=== PATIENT | male | born 1965 | race African-American/Black ===

== ENCOUNTER 2017-08-05 07:25 | Emergency (ER) | payer OTHER ==
[~2017-08-05] VITALS: Ht 177.8 cm; Wt 222.0 kg
[2017-08-05 08:12] LABS: HEMATOCRIT 37.3 % (38.0-50.0); HEMOGLOBIN 11.8 G/DL (12.5-16.6); MCH 31.1 PG (29.0-34.0); MCHC 31.6 G/DL (30.0-36.0); MCV 98.4 FL (86-99); PLATELET COUNT 170 K/uL (156-360); RBC DIS.WIDTH-CV 13.2 % (11.8-14.6); RBC DIS.WIDTH-SD 47.7 % (39-53); RED BLOOD COUNT 3.79 M/uL (4.00-5.50); WHITE BLOOD COUNT 8.8 K/uL (4.1-10.2)
[2017-08-05 08:19] LABS: INTER. NORMALIZED RATIO 1.1
[2017-08-05 08:22] LABS: CHLORIDE 98 mEq/L (99-109); POTASSIUM 4.4 mEq/L (3.7-5.4); PTT 23.7 SEC (25-37); SODIUM 138 mEq/L (136-147)
[2017-08-05 08:24] LABS: GLUCOSE 114 mg/dL (70-99)
[2017-08-05 08:28] LABS: UREA NITROGEN (BUN) 16 mg/dL (9-23)
[2017-08-05 08:35] LABS: TROP-I INTERPRETATION NEGATIVE; TROPONIN-I 0.02 ng/mL (0.0-0.30)
[2017-08-05 08:37] LABS: GFR ESTIMATE (CALCULATED) > 59 mL/min/ (58.99-99999)
[2017-08-05] MEDS ORDERED: LASIX80 MG PO (10:58)
[2017-08-05] MEDS ORDERED: POTASSIUM CHLOR8 ME3 PO (10:59)
[2017-08-05 12:21] LABS: TROP-I INTERPRETATION NEGATIVE; TROPONIN-I 0.02 ng/mL (0.0-0.30)
[2017-08-05 13:38] VITALS: BP 123/92
== END 2017-08-05 13:39 | disposition home or self-care (01) ==
LOC: EME 07:25
PROVIDERS: Emergency Medicine
DX: R06.00 Dyspnea, unspecified (principal); I48.91 Unspecified atrial fibrillation; I11.0 Hypertensive heart disease with heart failure; I50.9 Heart failure, unspecified; E78.5 Hyperlipidemia, unspecified; E11.9 Type 2 diabetes mellitus without complications
CPT/HCPCS: 71045; 80048; 83880; 84484; 85027; 85610; 85730; 93005; 99281; 99285; J1940

== ENCOUNTER 2017-08-31 01:16 | Inpatient (IN) | payer OTHER ==
[~2017-08-31] VITALS: Ht 177.8 cm; Wt 224.0 kg
[~2017-08-31 01:16] MED LIST: KLOR-CON20 MEQ PO; LASIX80 MG PO
[2017-08-31 01:57] LABS: HEMATOCRIT 37.1 % (38.0-50.0); HEMOGLOBIN 11.9 G/DL (12.5-16.6); MCH 30.9 PG (29.0-34.0); MCHC 32.1 G/DL (30.0-36.0); MCV 96.4 FL (86-99); PLATELET COUNT 223 K/uL (156-360); RBC DIS.WIDTH-CV 13.1 % (11.8-14.6); RBC DIS.WIDTH-SD 46.1 % (39-53); RED BLOOD COUNT 3.85 M/uL (4.00-5.50); WHITE BLOOD COUNT 9.4 K/uL (4.1-10.2)
[2017-08-31 02:04] LABS: ALBUMIN 3.8 g/dL (3.2-4.8); CHLORIDE 104 mEq/L (99-109); POTASSIUM 4.1 mEq/L (3.7-5.4); SODIUM 140 mEq/L (136-147)
[2017-08-31 02:06] LABS: GLUCOSE 106 mg/dL (70-99); TOTAL PROTEIN 7.3 g/dL (6.4-8.3)
[2017-08-31 02:08] LABS: TOTAL BILIRUBIN 0.6 mg/dL (0.0-1.0)
[2017-08-31 02:10] LABS: ALKALINE PHOSPHATASE 106 IU/L (3-129); CREATININE 1.2 mg/dL (0.6-1.3); GFR ESTIMATE (CALCULATED) > 59 mL/min/ (58.99-99999)
[2017-08-31 02:11] LABS: UREA NITROGEN (BUN) 18 mg/dL (9-23)
[2017-08-31 02:12] LABS: AST (GOT) 32 IU/L (2-34)
[2017-08-31 02:13] LABS: ALT (GPT) 46 IU/L (3-49)
[2017-08-31 02:30] LABS: INTER. NORMALIZED RATIO 1.1
[2017-08-31 02:32] LABS: PTT 27.6 SEC (25-37)
[2017-08-31 02:39] LABS: TROP-I INTERPRETATION NEGATIVE; TROPONIN-I 0.02 ng/mL (0.0-0.30)
[2017-08-31 08:39] VITALS: BP 151/103
[2017-08-31] MEDS ORDERED: LISINOPRIL10 MG PO (09:47)
[2017-08-31] MEDS ORDERED: CARVEDILOL3.125 MG PO (09:49)
[2017-08-31 11:47] VITALS: BP 114/79
[2017-08-31 15:19] VITALS: BP 124/73
[2017-08-31 19:22] VITALS: BP 144/65
[2017-09-01 04:00] VITALS: BP 119/72
[2017-09-01 07:27] VITALS: BP 108/73
[2017-09-01 10:39] LABS: CHLORIDE 98 MEQ/L (99-109); CREATININE 1.3 MG/DL (0.6-1.3); GFR ESTIMATE (CALCULATED) > 59 mL/min/ (58.99-99999); POTASSIUM 4.6 MEQ/L (3.7-5.4); SODIUM 141 MEQ/L (136-147); UREA NITROGEN (BUN) 23 mg/dL (9-23)
[2017-09-01 10:40] LABS: GLUCOSE 215 mg/dL (70-99)
[2017-09-01 15:14] VITALS: BP 121/71
[2017-09-01 20:40] VITALS: BP 112/56
[2017-09-02 00:38] VITALS: BP 112/65
[2017-09-02 03:08] VITALS: BP 130/67
[2017-09-02 08:00] VITALS: BP 111/64
[2017-09-02 09:07] LABS: CHLORIDE 99 MEQ/L (99-109); CREATININE 1.3 MG/DL (0.6-1.3); GFR ESTIMATE (CALCULATED) > 59 mL/min/ (58.99-99999); GLUCOSE 173 mg/dL (70-99); POTASSIUM 4.9 MEQ/L (3.7-5.4); SODIUM 137 MEQ/L (136-147); UREA NITROGEN (BUN) 30 mg/dL (9-23)
== END 2017-09-02 10:25 | disposition left against medical advice (07) | DRG 308 ==
LOC: EME 01:16 → EDOF 05:12 → ENRESERV 05:15 → 3EAST 07:25
PROVIDERS: Emergency Medicine; Hospitalist; Internal Medicine Cardiovascular Disease
PROC: 5A09357 Assistance with Respiratory Ventilation, Less than 24 Consecutive Hours, Continuous Positive Airway Pressure (ICD-10-PCS; principal; 2017-09-01)
DX: I48.91 Unspecified atrial fibrillation (principal); I11.0 Hypertensive heart disease with heart failure; I50.23 Acute on chronic systolic (congestive) heart failure; I42.0 Dilated cardiomyopathy; J44.9 Chronic obstructive pulmonary disease, unspecified; E78.5 Hyperlipidemia, unspecified; E11.9 Type 2 diabetes mellitus without complications; E66.2 Morbid (severe) obesity with alveolar hypoventilation; Z79.84 Long term (current) use of oral hypoglycemic drugs; Z87.891 Personal history of nicotine dependence
CPT/HCPCS: 71045; 80048; 80053; 82948; 83880; 84484; 85027; 85610; 85730; 93005; 93306; 94640; 94640 76; 94660; 94799; 99202; 99281; 99285; J1650; J1815; J1940; J2930; J7512

== ENCOUNTER 2017-09-28 17:05 | Inpatient (IN) | payer OTHER ==
[~2017-09-28] VITALS: Ht 177.8 cm; Wt 220.5 kg
[~2017-09-28 17:05] MED LIST changes: +COREG25 M1 PO; +LISINOPRIL10 MG PO
[2017-09-28 17:34] LABS: HEMATOCRIT 35.3 % (38.0-50.0); HEMOGLOBIN 10.9 G/DL (12.5-16.6); MCH 30.2 PG (29.0-34.0); MCHC 30.9 G/DL (30.0-36.0); MCV 97.8 FL (86-99); PLATELET COUNT 216 K/uL (156-360); RBC DIS.WIDTH-CV 13.2 % (11.8-14.6); RBC DIS.WIDTH-SD 47.4 % (39-53); RED BLOOD COUNT 3.61 M/uL (4.00-5.50); WHITE BLOOD COUNT 8.6 K/uL (4.1-10.2)
[2017-09-28 17:40] LABS: VENOUS PCO2 85 mm Hg (41-51)
[2017-09-28 17:44] LABS: CARBON DIOXIDE (BICARBONATE) > 40.0 MEQ/L (20-31)
[2017-09-28 17:46] LABS: CHLORIDE 97 mEq/L (99-109); POTASSIUM 4.3 mEq/L (3.7-5.4); SODIUM 143 mEq/L (136-147)
[2017-09-28 17:48] LABS: GLUCOSE 103 mg/dL (70-99)
[2017-09-28 17:52] LABS: CREATININE 1.2 mg/dL (0.6-1.3); GFR ESTIMATE (CALCULATED) > 59 mL/min/ (58.99-99999)
[2017-09-28 17:53] LABS: UREA NITROGEN (BUN) 16 mg/dL (9-23)
[2017-09-28 17:59] LABS: TROP-I INTERPRETATION NEGATIVE; TROPONIN-I 0.01 ng/mL (0.0-0.30)
[2017-09-28] MEDS ORDERED: ELIQUIS5 MG PO (19:23)
[2017-09-28 21:22] LABS: CHLORIDE 98 mEq/L (99-109); POTASSIUM 4.3 mEq/L (3.7-5.4); SODIUM 143 mEq/L (136-147)
[2017-09-28 21:24] LABS: GLUCOSE 131 mg/dL (70-99)
[2017-09-28 21:28] LABS: CREATININE 1.1 mg/dL (0.6-1.3); GFR ESTIMATE (CALCULATED) > 59 mL/min/ (58.99-99999)
[2017-09-28 21:29] LABS: UREA NITROGEN (BUN) 17 mg/dL (9-23)
[2017-09-28 23:22] VITALS: BP 140/68
[2017-09-29 04:55] VITALS: BP 143/58
[2017-09-29 06:28] LABS: HEMATOCRIT 34.4 % (38.0-50.0); HEMOGLOBIN 10.6 G/DL (12.5-16.6); MCH 30.7 PG (29.0-34.0); MCHC 30.8 G/DL (30.0-36.0); MCV 99.7 FL (86-99); PLATELET COUNT 228 K/uL (156-360); RBC DIS.WIDTH-CV 13.4 % (11.8-14.6); RBC DIS.WIDTH-SD 49.3 % (39-53); RED BLOOD COUNT 3.45 M/uL (4.00-5.50); WHITE BLOOD COUNT 10.8 K/uL (4.1-10.2)
[2017-09-29 06:31] LABS: CHLORIDE 95 MEQ/L (99-109); CREATININE 1.2 MG/DL (0.6-1.3); GFR ESTIMATE (CALCULATED) > 59 mL/min/ (58.99-99999); GLUCOSE 155 mg/dL (70-99); HDL CHOLESTEROL 36 MG/DL (Desirable>=40); LDL CHOLESTEROL 78 mg/dL (Desirable<100); NON-HDL CHOLESTEROL 89 mg/dL (Desirable<160); POTASSIUM 5.1 MEQ/L (3.7-5.4); SODIUM 138 MEQ/L (136-147); TOTAL CHOLESTEROL 125 mg/dL (Desirable<200); TRIGLYCERIDES 53 MG/DL (Normal: <150); UREA NITROGEN (BUN) 18 mg/dL (9-23)
[2017-09-29 07:11] VITALS: BP 108/56
[2017-09-29 11:50] VITALS: BP 111/53
[2017-09-29 14:45] LABS: HEMOGLOBIN A1c (GLYCOHEMOGLOB) 6.8 % (Below 5.7)
[2017-09-29 15:03] VITALS: BP 119/65
[2017-09-29 19:32] VITALS: BP 09/62; BP 109/62
[2017-09-30 00:03] VITALS: BP 120/54
[2017-09-30 04:45] VITALS: BP 110/60
[2017-09-30 05:28] LABS: BASOPHIL (%) 0.1 % (0-1); EOSINOPHIL (%) 0 % (0-5); HEMOGLOBIN 10.2 G/DL (12.5-16.6); IMMATURE GRANULOCYTE (%) 0.5 % (0.0-0.7); LYMPHOCYTE (%) 5.8 % (15-42); LYMPHOCYTE COUNT 0.9 K/uL (1.0-2.8); MCH 29.7 PG (29.0-34.0); MCV 98.8 FL (86-99); MONOCYTE (%) 4.1 % (3-12); MONOCYTE COUNT 0.6 K/uL (0-0.8); NEUTROPHIL (%) 89.5 % (45-76); NEUTROPHIL COUNT 13.4 K/uL (1.8-6.4); PLATELET COUNT 251 K/uL (156-360); RBC DIS.WIDTH-CV 13.1 % (11.8-14.6); RBC DIS.WIDTH-SD 47.6 % (39-53); RED BLOOD COUNT 3.44 M/uL (4.00-5.50); WHITE BLOOD COUNT 14.9 K/uL (4.1-10.2)
[2017-09-30 06:03] LABS: CHLORIDE 94 MEQ/L (99-109); CREATININE 1.4 MG/DL (0.6-1.3); GFR ESTIMATE (CALCULATED) > 59 mL/min/ (58.99-99999); GLUCOSE 217 mg/dL (70-99); POTASSIUM 5.3 MEQ/L (3.7-5.4); SODIUM 137 MEQ/L (136-147)
[2017-09-30 06:04] LABS: UREA NITROGEN (BUN) 30 mg/dL (9-23)
[2017-09-30 07:02] VITALS: BP 142/75
[2017-09-30 11:42] VITALS: BP 116/44
[2017-09-30 15:42] VITALS: BP 130/96
[2017-09-30 19:52] VITALS: BP 115/57
[2017-10-01 00:05] VITALS: BP 111/66
[2017-10-01 04:36] VITALS: BP 117/65
[2017-10-01 07:04] VITALS: BP 131/71
[2017-10-01 07:53] LABS: BASOPHIL (%) 0.1 % (0-1); EOSINOPHIL (%) 0.4 % (0-5); EOSINOPHIL COUNT 0.1 K/uL (0-0.3); HEMATOCRIT 33.5 % (38.0-50.0); IMMATURE GRANULOCYTE (%) 0.5 % (0.0-0.7); LYMPHOCYTE (%) 10.7 % (15-42); LYMPHOCYTE COUNT 1.5 K/uL (1.0-2.8); MCH 29.6 PG (29.0-34.0); MCHC 29.9 G/DL (30.0-36.0); MCV 99.1 FL (86-99); MONOCYTE (%) 10.7 % (3-12); MONOCYTE COUNT 1.5 K/uL (0-0.8); NEUTROPHIL (%) 77.6 % (45-76); NEUTROPHIL COUNT 10.9 K/uL (1.8-6.4); PLATELET COUNT 255 K/uL (156-360); RBC DIS.WIDTH-CV 13.2 % (11.8-14.6); RBC DIS.WIDTH-SD 47.6 % (39-53); RED BLOOD COUNT 3.38 M/uL (4.00-5.50); WHITE BLOOD COUNT 14.1 K/uL (4.1-10.2)
[2017-10-01 08:18] LABS: ALBUMIN 3.5 G/DL (3.2-4.8); ALKALINE PHOSPHATASE 98 IU/L (3-129); ALT (GPT) 25 IU/L (3-49); AST (GOT) 13 IU/L (2-34); CHLORIDE 91 MEQ/L (99-109); CREATININE 1.3 MG/DL (0.6-1.3); GFR ESTIMATE (CALCULATED) > 59 mL/min/ (58.99-99999); GLUCOSE 154 mg/dL (70-99); POTASSIUM 4.6 MEQ/L (3.7-5.4); SODIUM 137 MEQ/L (136-147); TOTAL BILIRUBIN 0.3 MG/DL (0.0-1.0); TOTAL PROTEIN 6.7 G/DL (6.4-8.3); UREA NITROGEN (BUN) 38 mg/dL (9-23)
[2017-10-01 08:19] LABS: CARBON DIOXIDE (BICARBONATE) > 40.0 MEQ/L (20-31)
[2017-10-01 12:38] VITALS: BP 114/69
[2017-10-01 19:22] VITALS: BP 108/59
[2017-10-02 00:05] VITALS: BP 129/66
[2017-10-02 08:14] VITALS: BP 130/68
[2017-10-02 08:49] LABS: BASOPHIL (%) 0.1 % (0-1); EOSINOPHIL (%) 0.2 % (0-5); HEMATOCRIT 34.5 % (38.0-50.0); HEMOGLOBIN 10.5 G/DL (12.5-16.6); IMMATURE GRANULOCYTE (%) 0.6 % (0.0-0.7); LYMPHOCYTE COUNT 1.6 K/uL (1.0-2.8); MCH 29.7 PG (29.0-34.0); MCHC 30.4 G/DL (30.0-36.0); MCV 97.7 FL (86-99); MONOCYTE (%) 11.2 % (3-12); MONOCYTE COUNT 1.4 K/uL (0-0.8); NEUTROPHIL (%) 74.9 % (45-76); NEUTROPHIL COUNT 9.2 K/uL (1.8-6.4); PLATELET COUNT 268 K/uL (156-360); RBC DIS.WIDTH-CV 13.2 % (11.8-14.6); RBC DIS.WIDTH-SD 47.1 % (39-53); RED BLOOD COUNT 3.53 M/uL (4.00-5.50); WHITE BLOOD COUNT 12.3 K/uL (4.1-10.2)
[2017-10-02 09:24] LABS: CHLORIDE 90 MEQ/L (99-109); CREATININE 1.3 MG/DL (0.6-1.3); GFR ESTIMATE (CALCULATED) > 59 mL/min/ (58.99-99999); GLUCOSE 150 mg/dL (70-99); POTASSIUM 4.3 MEQ/L (3.7-5.4); SODIUM 139 MEQ/L (136-147); UREA NITROGEN (BUN) 37 mg/dL (9-23)
[2017-10-02 09:31] LABS: CARBON DIOXIDE (BICARBONATE) > 40.0 MEQ/L (20-31)
[2017-10-02 11:55] VITALS: BP 136/74
[2017-10-02 16:10] VITALS: BP 108/51
[2017-10-02 19:24] VITALS: BP 90/55
[2017-10-02 23:38] VITALS: BP 102/73
[2017-10-03 06:40] LABS: BASOPHIL (%) 0.6 % (0-1); BASOPHIL COUNT 0.1 K/uL (0-0.1); EOSINOPHIL (%) 1.6 % (0-5); EOSINOPHIL COUNT 0.2 K/uL (0-0.3); HEMATOCRIT 37.4 % (38.0-50.0); HEMOGLOBIN 11.6 G/DL (12.5-16.6); IMMATURE GRANULOCYTE (%) 0.4 % (0.0-0.7); LYMPHOCYTE (%) 18.5 % (15-42); MCH 29.7 PG (29.0-34.0); MCV 95.9 FL (86-99); MONOCYTE (%) 12.6 % (3-12); MONOCYTE COUNT 1.3 K/uL (0-0.8); NEUTROPHIL (%) 66.3 % (45-76); PLATELET COUNT 283 K/uL (156-360); RBC DIS.WIDTH-CV 13.2 % (11.8-14.6); RBC DIS.WIDTH-SD 46.8 % (39-53); WHITE BLOOD COUNT 10.6 K/uL (4.1-10.2)
[2017-10-03 07:07] LABS: CHLORIDE 88 MEQ/L (99-109); CREATININE 1.3 MG/DL (0.6-1.3); GFR ESTIMATE (CALCULATED) > 59 mL/min/ (58.99-99999); GLUCOSE 138 mg/dL (70-99); POTASSIUM 3.9 MEQ/L (3.7-5.4); SODIUM 138 MEQ/L (136-147); UREA NITROGEN (BUN) 42 mg/dL (9-23)
[2017-10-03 07:10] LABS: CARBON DIOXIDE (BICARBONATE) > 40.0 MEQ/L (20-31)
[2017-10-03 07:35] VITALS: BP 144/84
[2017-10-03 16:14] VITALS: BP 145/83
[2017-10-03 19:28] VITALS: BP 115/60
[2017-10-03 23:33] VITALS: BP 110/61
[2017-10-04 08:09] VITALS: BP 132/78
[2017-10-04 09:56] LABS: CARBON DIOXIDE (BICARBONATE) > 40.0 MEQ/L (20-31); CHLORIDE 85 MEQ/L (99-109); CREATININE 1.2 MG/DL (0.6-1.3); GFR ESTIMATE (CALCULATED) > 59 mL/min/ (58.99-99999); GLUCOSE 190 mg/dL (70-99); POTASSIUM 3.7 MEQ/L (3.7-5.4); SODIUM 136 MEQ/L (136-147); UREA NITROGEN (BUN) 41 mg/dL (9-23)
[2017-10-04 19:20] VITALS: BP 118/80
[2017-10-04 23:24] VITALS: BP 105/55
[2017-10-05 09:34] LABS: HEMATOCRIT 38.6 % (38.0-50.0); HEMOGLOBIN 12.3 G/DL (12.5-16.6); MCH 30.2 PG (29.0-34.0); MCHC 31.9 G/DL (30.0-36.0); MCV 94.8 FL (86-99); PLATELET COUNT 284 K/uL (156-360); RBC DIS.WIDTH-CV 13.3 % (11.8-14.6); RBC DIS.WIDTH-SD 46.1 % (39-53); RED BLOOD COUNT 4.07 M/uL (4.00-5.50); WHITE BLOOD COUNT 10.3 K/uL (4.1-10.2)
[2017-10-05 10:06] LABS: CHLORIDE 84 MEQ/L (99-109); CREATININE 1.5 MG/DL (0.6-1.3); GFR ESTIMATE (CALCULATED) > 59 mL/min/ (58.99-99999); GLUCOSE 213 mg/dL (70-99); POTASSIUM 3.7 MEQ/L (3.7-5.4); SODIUM 136 MEQ/L (136-147); UREA NITROGEN (BUN) 45 mg/dL (9-23)
[2017-10-05 10:18] LABS: CARBON DIOXIDE (BICARBONATE) > 40.0 MEQ/L (20-31)
[2017-10-05 15:51] VITALS: BP 105/64
[2017-10-05 19:30] VITALS: BP 118/72
[2017-10-05 23:44] VITALS: BP 107/55
[2017-10-06 08:05] VITALS: BP 111/59
[2017-10-06 09:16] LABS: CHLORIDE 86 MEQ/L (99-109); CREATININE 1.5 MG/DL (0.6-1.3); GFR ESTIMATE (CALCULATED) > 59 mL/min/ (58.99-99999); GLUCOSE 213 mg/dL (70-99); POTASSIUM 3.4 MEQ/L (3.7-5.4); SODIUM 138 MEQ/L (136-147); UREA NITROGEN (BUN) 47 mg/dL (9-23)
[2017-10-06 09:18] LABS: CARBON DIOXIDE (BICARBONATE) > 40.0 MEQ/L (20-31)
[2017-10-06 10:07] LABS: MAGNESIUM 2.1 mg/dl (1.3-2.7)
[2017-10-06] MEDS ORDERED: GLIPIZIDE5 MG PO (12:56)
[2017-10-06] MEDS ORDERED: K-DUR20 MEQ PO (12:56)
[2017-10-06] MEDS ORDERED: ENTRESTO 24 MG1 EACH PO (12:56)
[2017-10-06] MEDS ORDERED: METOLAZONE2.5 MG PO (12:56)
[2017-10-06] MEDS ORDERED: CARVEDILOL25 MG PO (12:56)
[2017-10-06] MEDS ORDERED: FUROSEMIDE80 MG PO (12:56)
== END 2017-10-06 16:33 | disposition home health service (06) | DRG 189 ==
LOC: EME 17:05 → EDOF 20:19 → 4EAST 20:19 → 5SOUTH 20:19 → ENRESERV 20:20 → 4EAST 22:54 → ENRESERV 10-01 16:42 → 5SOUTH 10-01 18:43 → ENPENDDIS 10-06 13:13 → 5SOUTH 10-06 16:33
PROVIDERS: Emergency Medicine; Hospitalist; Internal Medicine
PROC: 5A09357 Assistance with Respiratory Ventilation, Less than 24 Consecutive Hours, Continuous Positive Airway Pressure (ICD-10-PCS; principal; 2017-09-29)
DX: J96.21 Acute and chronic respiratory failure with hypoxia (principal); I11.0 Hypertensive heart disease with heart failure; I50.23 Acute on chronic systolic (congestive) heart failure; J44.1 Chronic obstructive pulmonary disease with (acute) exacerbation; J45.901 Unspecified asthma with (acute) exacerbation; E87.4 Mixed disorder of acid-base balance; T50.1X5A Adverse effect of loop [high-ceiling] diuretics, initial encounter; I48.2 Chronic atrial fibrillation; E78.5 Hyperlipidemia, unspecified; E11.9 Type 2 diabetes mellitus without complications; D72.829 Elevated white blood cell count, unspecified; E66.2 Morbid (severe) obesity with alveolar hypoventilation; Z68.44 Body mass index [BMI] 60.0-69.9, adult; Z79.01 Long term (current) use of anticoagulants; Z91.14 Patient's other noncompliance with medication regimen; Z91.19 Patient's noncompliance with other medical treatment and regimen; Z87.891 Personal history of nicotine dependence
CPT/HCPCS: 36600; 71045; 80048; 80048 91; 80053; 80061; 82803; 82948; 83036; 83605; 83735; 83880; 84484; 85025; 85027; 87040; 93005; 94640; 94640 76; 94660; 94760; 94799; 97530 GO; 99281; 99285; J1815; J1940; J2920; J7644

== ENCOUNTER 2018-01-01 17:33 | Inpatient (IN) | payer OTHER ==
[~2018-01-01] VITALS: Ht 177.8 cm; Wt 190.0 kg
[~2018-01-01 17:33] MED LIST changes: +CARVEDILOL25 MG PO; +ELIQUIS5 MG PO; +ENTRESTO 24 MG1 EACH PO; +FUROSEMIDE80 MG PO; +GLIPIZIDE5 MG PO; +K-DUR20 MEQ PO; +METOLAZONE2.5 MG PO
[2018-01-01 18:42] LABS: HEMATOCRIT 45.3 % (38.0-50.0); HEMOGLOBIN 15.6 G/DL (12.5-16.6); MCH 30.8 PG (29.0-34.0); MCHC 34.4 G/DL (30.0-36.0); MCV 89.5 FL (86-99); PLATELET COUNT 192 K/uL (156-360); RBC DIS.WIDTH-CV 12.8 % (11.8-14.6); RBC DIS.WIDTH-SD 41.7 % (39-53); RED BLOOD COUNT 5.06 M/uL (4.00-5.50); WHITE BLOOD COUNT 10.7 K/uL (4.1-10.2)
[2018-01-01 18:44] LABS: APPEARANCE CLEAR ((CLEAR)); BILIRUBIN NEGATIVE; BLOOD NEGATIVE; COLOR COLORLESS ((YELLOW)); GLUCOSE (STRIP) >=500; KETONES 5; LEUKOCYTES NEGATIVE; NITRITE NEGATIVE; PROTEIN (STRIP) NEGATIVE; SPECIFIC GRAVITY 1.026 (1.000-1.030); UCUL ADDED? NO; UROBILINOGEN 0.2 MG/DL (0.2-1.0)
[2018-01-01 18:47] LABS: CARBON DIOXIDE (BICARBONATE) 33.5 MEQ/L (20-31)
[2018-01-01 18:55] LABS: ALBUMIN 4.2 g/dL (3.2-4.8)
[2018-01-01 18:56] LABS: CHLORIDE 74 mEq/L (99-109); POTASSIUM 5.3 mEq/L (3.7-5.4)
[2018-01-01 18:58] LABS: TOTAL PROTEIN 8.4 g/dL (6.4-8.3)
[2018-01-01 19:02] LABS: ALKALINE PHOSPHATASE 155 IU/L (3-129)
[2018-01-01 19:03] LABS: CREATININE 2.4 mg/dL (0.6-1.3); GFR ESTIMATE (CALCULATED) 37 mL/min/ (58.99-99999); UREA NITROGEN (BUN) 19 mg/dL (9-23)
[2018-01-01 19:05] LABS: ALT (GPT) 25 IU/L (3-49); AST (GOT) 20 IU/L (2-34); LIPASE 66 U/L (1.0-51.0)
[2018-01-01 19:08] LABS: GLUCOSE 983 mg/dL (70-99); SODIUM 118 mEq/L (136-147)
[2018-01-01 19:47] LABS: TROP-I INTERPRETATION NEGATIVE; TROPONIN-I 0.02 ng/mL (0.0-0.30)
[2018-01-01 21:31] LABS: CREATININE 2.1 mg/dL (0.6-1.3); GFR ESTIMATE (CALCULATED) 43 mL/min/ (58.99-99999)
[2018-01-01 21:32] LABS: UREA NITROGEN (BUN) 19 mg/dL (9-23)
[2018-01-01 21:39] LABS: CHLORIDE 83 mEq/L (99-109); GLUCOSE 788 mg/dL (70-99); POTASSIUM 3.9 mEq/L (3.7-5.4); SODIUM 125 mEq/L (136-147)
[2018-01-02] VITALS (18 sets, daily range): BP systolic 86–134; BP diastolic 56–90
[2018-01-02] MEDS ORDERED: K-DUR20 MEQ PO (00:05)
[2018-01-02] MEDS ORDERED: LASIX80 MG PO (00:06)
[2018-01-02 03:15] LABS: HEMATOCRIT 41.3 % (38.0-50.0); HEMOGLOBIN 14.5 G/DL (12.5-16.6); MCH 30.9 PG (29.0-34.0); MCHC 35.1 G/DL (30.0-36.0); MCV 87.9 FL (86-99); RBC DIS.WIDTH-CV 12.6 % (11.8-14.6); RBC DIS.WIDTH-SD 41.1 % (39-53); WHITE BLOOD COUNT 11.1 K/uL (4.1-10.2)
[2018-01-02 03:25] LABS: ALBUMIN 3.7 g/dL (3.2-4.8); CHLORIDE 85 mEq/L (99-109); POTASSIUM 4.4 mEq/L (3.7-5.4); SODIUM 126 mEq/L (136-147)
[2018-01-02 03:28] LABS: TOTAL PROTEIN 7.4 g/dL (6.4-8.3)
[2018-01-02 03:30] LABS: TOTAL BILIRUBIN 0.8 mg/dL (0.0-1.0)
[2018-01-02 03:31] LABS: ALKALINE PHOSPHATASE 128 IU/L (3-129); CREATININE 2.1 mg/dL (0.6-1.3); GFR ESTIMATE (CALCULATED) 43 mL/min/ (58.99-99999)
[2018-01-02 03:33] LABS: AST (GOT) 16 IU/L (2-34); PHOSPHORUS 3.8 mg/dL (2.5-4.9); UREA NITROGEN (BUN) 19 mg/dL (9-23)
[2018-01-02 03:34] LABS: ALT (GPT) 22 IU/L (3-49)
[2018-01-02 03:36] LABS: GLUCOSE 707 mg/dL (70-99)
[2018-01-02 03:41] LABS: TROP-I INTERPRETATION NEGATIVE; TROPONIN-I 0.02 ng/mL (0.0-0.30)
[2018-01-02 04:16] LABS: PLAT.SUFFICIENCY ADEQUATE; PLATELET COUNT 190 K/uL (156-360)
[2018-01-02 08:17] LABS: CHLORIDE 88 MEQ/L (99-109); GFR ESTIMATE (CALCULATED) > 59 mL/min/ (58.99-99999); POTASSIUM 3.8 MEQ/L (3.7-5.4); SODIUM 128 MEQ/L (136-147); UREA NITROGEN (BUN) 16 mg/dL (9-23)
[2018-01-02 08:19] LABS: CREATININE 1.5 MG/DL (0.6-1.3); GLUCOSE 336 mg/dL (70-99)
[2018-01-02 13:50] LABS: CHLORIDE 91 MEQ/L (99-109); CREATININE 1.3 MG/DL (0.6-1.3); GFR ESTIMATE (CALCULATED) > 59 mL/min/ (58.99-99999); GLUCOSE 243 mg/dL (70-99); PHOSPHORUS 2.7 mg/dL (2.5-4.9); POTASSIUM 3.6 MEQ/L (3.7-5.4); UREA NITROGEN (BUN) 17 mg/dL (9-23)
[2018-01-02 13:53] LABS: SODIUM 135 MEQ/L (136-147)
[2018-01-02 16:20] LABS: CHLORIDE 92 MEQ/L (99-109); CREATININE 1.3 MG/DL (0.6-1.3); GFR ESTIMATE (CALCULATED) > 59 mL/min/ (58.99-99999); GLUCOSE 178 mg/dL (70-99); PHOSPHORUS 2.7 mg/dL (2.5-4.9); POTASSIUM 3.2 MEQ/L (3.7-5.4); SODIUM 135 MEQ/L (136-147); UREA NITROGEN (BUN) 16 mg/dL (9-23)
[2018-01-02 20:10] LABS: CHLORIDE 91 mEq/L (99-109); POTASSIUM 3.5 mEq/L (3.7-5.4); SODIUM 136 mEq/L (136-147)
[2018-01-02 20:11] LABS: GLUCOSE 168 mg/dL (70-99)
[2018-01-02 20:15] LABS: CREATININE 1.5 mg/dL (0.6-1.3); GFR ESTIMATE (CALCULATED) > 59 mL/min/ (58.99-99999); PHOSPHORUS 3.4 mg/dL (2.5-4.9)
[2018-01-02 20:16] LABS: UREA NITROGEN (BUN) 17 mg/dL (9-23)
[2018-01-03] VITALS (7 sets, daily range): BP systolic 68–143; BP diastolic 41–71
[2018-01-03 08:30] LABS: PHOSPHORUS 3.1 mg/dL (2.5-4.9)
[2018-01-03 11:36] LABS: BASOPHIL (%) 0.5 % (0-1); BASOPHIL COUNT 0.1 K/uL (0-0.1); EOSINOPHIL (%) 1.4 % (0-5); EOSINOPHIL COUNT 0.2 K/uL (0-0.3); HEMATOCRIT 42.6 % (38.0-50.0); HEMOGLOBIN 14.2 G/DL (12.5-16.6); IMMATURE GRANULOCYTE (%) 0.4 % (0.0-0.7); LYMPHOCYTE (%) 21.7 % (15-42); LYMPHOCYTE COUNT 2.3 K/uL (1.0-2.8); MCHC 33.3 G/DL (30.0-36.0); MCV 90.1 FL (86-99); MONOCYTE (%) 8.6 % (3-12); MONOCYTE COUNT 0.9 K/uL (0-0.8); NEUTROPHIL (%) 67.4 % (45-76); NEUTROPHIL COUNT 7.3 K/uL (1.8-6.4); PLATELET COUNT 177 K/uL (156-360); RBC DIS.WIDTH-CV 13.2 % (11.8-14.6); RBC DIS.WIDTH-SD 43.8 % (39-53); RED BLOOD COUNT 4.73 M/uL (4.00-5.50); WHITE BLOOD COUNT 10.8 K/uL (4.1-10.2)
[2018-01-03 11:57] LABS: CHLORIDE 93 MEQ/L (99-109); CREATININE 1.3 MG/DL (0.6-1.3); GFR ESTIMATE (CALCULATED) > 59 mL/min/ (58.99-99999); GLUCOSE 334 mg/dL (70-99); MAGNESIUM 1.9 mg/dl (1.3-2.7); POTASSIUM 3.6 MEQ/L (3.7-5.4); SODIUM 133 MEQ/L (136-147); UREA NITROGEN (BUN) 18 mg/dL (9-23)
[2018-01-03] MEDS ORDERED: BASAGLAR K100 UNIT/1 SC ×2 (14:50→14:51)
[2018-01-03] MEDS ORDERED: LISINOPRIL10 MG PO (15:25)
== END 2018-01-03 16:50 | disposition home or self-care (01) | DRG 638 ==
LOC: EME 17:33 → 5SOUTH 01-02 01:03 → EDOF 01-02 01:03 → ENRESERV 01-02 01:06 → 4WEST 01-02 02:22 → ENRESERV 01-03 00:18 → 5SOUTH 01-03 01:19
PROVIDERS: Hospitalist; Obstetrics & Gynecology; Physician Assistant
DX: E11.10 Type 2 diabetes mellitus with ketoacidosis without coma (principal); E11.65 Type 2 diabetes mellitus with hyperglycemia; N17.9 Acute kidney failure, unspecified; E87.1 Hypo-osmolality and hyponatremia; E86.0 Dehydration; I42.0 Dilated cardiomyopathy; I11.0 Hypertensive heart disease with heart failure; I50.9 Heart failure, unspecified; I48.2 Chronic atrial fibrillation; J44.9 Chronic obstructive pulmonary disease, unspecified; E66.2 Morbid (severe) obesity with alveolar hypoventilation; Z68.44 Body mass index [BMI] 60.0-69.9, adult; E78.5 Hyperlipidemia, unspecified; Z79.01 Long term (current) use of anticoagulants; Z91.19 Patient's noncompliance with other medical treatment and regimen; Z87.891 Personal history of nicotine dependence
CPT/HCPCS: 71046; 80048; 80048 91; 80053; 81003; 82010; 82803; 82948; 83036; 83690; 83735; 84100; 84484; 85025; 85027; 87641; 93005; 93306; 99281; 99285; J1815; J2765; J3480; J7030; J7050

== ENCOUNTER 2018-01-08 12:43 | Inpatient (IN) | payer OTHER ==
[~2018-01-08] VITALS: Ht 175.3 cm; Wt 120.9 kg
[~2018-01-08 12:43] MED LIST changes: +BASAGLAR K100 UNIT/1 SC
[2018-01-08 13:42] LABS: BASOPHIL (%) 0.4 % (0-1); EOSINOPHIL (%) 0.9 % (0-5); EOSINOPHIL COUNT 0.1 K/uL (0-0.3); HEMATOCRIT 41.2 % (38.0-50.0); IMMATURE GRANULOCYTE (%) 0.4 % (0.0-0.7); LYMPHOCYTE (%) 20.4 % (15-42); LYMPHOCYTE COUNT 1.6 K/uL (1.0-2.8); MCH 30.8 PG (29.0-34.0); MCV 90.5 FL (86-99); MONOCYTE (%) 9.1 % (3-12); MONOCYTE COUNT 0.7 K/uL (0-0.8); NEUTROPHIL (%) 68.8 % (45-76); NEUTROPHIL COUNT 5.4 K/uL (1.8-6.4); PLATELET COUNT 167 K/uL (156-360); RBC DIS.WIDTH-CV 13.4 % (11.8-14.6); RBC DIS.WIDTH-SD 44.4 % (39-53); RED BLOOD COUNT 4.55 M/uL (4.00-5.50); WHITE BLOOD COUNT 7.8 K/uL (4.1-10.2)
[2018-01-08 13:57] LABS: CHLORIDE 81 mEq/L (99-109); CREATININE 3.3 mg/dL (0.6-1.3); GFR ESTIMATE (CALCULATED) 26 mL/min/ (58.99-99999); POTASSIUM 4.8 mEq/L (3.7-5.4); SODIUM 122 mEq/L (136-147)
[2018-01-08 14:01] LABS: UREA NITROGEN (BUN) 49 mg/dL (9-23)
[2018-01-08 14:02] LABS: TROP-I INTERPRETATION NEGATIVE; TROPONIN-I 0.02 ng/mL (0.0-0.30)
[2018-01-08 14:34] LABS: GLUCOSE 838 mg/dL (70-99)
[2018-01-08 14:53] LABS: CARBON DIOXIDE (BICARBONATE) 31.2 MEQ/L (20-31)
[2018-01-08 15:01] LABS: ALBUMIN 3.6 G/DL (3.2-4.8); DIRECT BILIRUBIN 0.2 mg/dL (0.0-0.3); TOTAL BILIRUBIN 0.7 MG/DL (0.0-1.0)
[2018-01-08 15:07] LABS: ALKALINE PHOSPHATASE 95 IU/L (3-129); ALT (GPT) 20 IU/L (3-49); AST (GOT) 19 IU/L (2-34)
[2018-01-08 17:57] LABS: APPEARANCE CLEAR ((CLEAR)); BILIRUBIN NEGATIVE; BLOOD NEGATIVE; COLOR YELLOW ((YELLOW)); GLUCOSE (STRIP) >=500; KETONES NEGATIVE; LEUKOCYTES NEGATIVE; NITRITE NEGATIVE; PROTEIN (STRIP) NEGATIVE; SPECIFIC GRAVITY 1.017 (1.000-1.030); UCUL ADDED? NO; UROBILINOGEN 0.2 MG/DL (0.2-1.0)
[2018-01-08] MEDS ORDERED: LISINOPRIL10 MG PO (17:59)
[2018-01-08] MEDS ORDERED: CARVEDILOL25 MG PO (17:59)
[2018-01-08] MEDS ORDERED: BASAGLAR K100 UNIT/1 SC ×2 (18:00→18:01)
[2018-01-09] VITALS (8 sets, daily range): BP systolic 78–129; BP diastolic 0–73
[2018-01-09 01:11] LABS: TROP-I INTERPRETATION NEGATIVE; TROPONIN-I 0.02 ng/mL (0.0-0.30)
[2018-01-09 06:21] LABS: CHLORIDE 90 MEQ/L (99-109); CREATININE 3.8 MG/DL (0.6-1.3); GFR ESTIMATE (CALCULATED) 22 mL/min/ (58.99-99999); UREA NITROGEN (BUN) 51 mg/dL (9-23)
[2018-01-09 06:26] LABS: GLUCOSE 218 mg/dL (70-99); POTASSIUM 3.3 MEQ/L (3.7-5.4); SODIUM 132 MEQ/L (136-147)
[2018-01-10 00:01] VITALS: BP 168/97
[2018-01-10 03:30] VITALS: BP 150/51
[2018-01-10 05:22] LABS: BASOPHIL (%) 0.7 % (0-1); BASOPHIL COUNT 0.1 K/uL (0-0.1); EOSINOPHIL (%) 1.4 % (0-5); EOSINOPHIL COUNT 0.1 K/uL (0-0.3); HEMATOCRIT 39.8 % (38.0-50.0); HEMOGLOBIN 13.5 G/DL (12.5-16.6); IMMATURE GRANULOCYTE (%) 0.2 % (0.0-0.7); LYMPHOCYTE (%) 28.6 % (15-42); LYMPHOCYTE COUNT 2.6 K/uL (1.0-2.8); MCH 30.8 PG (29.0-34.0); MCHC 33.9 G/DL (30.0-36.0); MCV 90.7 FL (86-99); MONOCYTE (%) 12.3 % (3-12); MONOCYTE COUNT 1.1 K/uL (0-0.8); NEUTROPHIL (%) 56.8 % (45-76); NEUTROPHIL COUNT 5.1 K/uL (1.8-6.4); PLATELET COUNT 165 K/uL (156-360); RBC DIS.WIDTH-CV 13.2 % (11.8-14.6); RED BLOOD COUNT 4.39 M/uL (4.00-5.50)
[2018-01-10 06:11] LABS: CHLORIDE 96 MEQ/L (99-109); GLUCOSE 246 mg/dL (70-99); POTASSIUM 3.4 MEQ/L (3.7-5.4); SODIUM 133 MEQ/L (136-147); UREA NITROGEN (BUN) 45 mg/dL (9-23)
[2018-01-10 06:20] LABS: CREATININE 1.8 MG/DL (0.6-1.3); GFR ESTIMATE (CALCULATED) 52 mL/min/ (58.99-99999); MAGNESIUM 2.4 mg/dl (1.3-2.7)
[2018-01-10 08:15] VITALS: BP 170/90
[2018-01-10 11:39] VITALS: BP 155/78
[2018-01-10] MEDS ORDERED: HUMALOG100 UNIT/1 SC (11:57)
[2018-01-10] MEDS ORDERED: LEVEMIR100 UNIT/2 SC (11:57)
[2018-01-10] MEDS ORDERED: LASIX20 MG PO (11:57)
[2018-01-10] MEDS ORDERED: APRESOLINE10 MG PO (11:57)
== END 2018-01-10 15:15 | disposition home or self-care (01) | DRG 683 ==
LOC: EME 12:43 → EDOF 18:37 → ENRESERV 18:38 → CANRESERV 18:38 → ENRESERV 20:02 → 4SOUTH 21:29 → 4EAST 01-09 09:02 → 4SOUTH 01-09 09:02 → ENRESERV 01-09 10:01 → 4EAST 01-09 11:33
PROVIDERS: Emergency Medicine; Hospitalist; Internal Medicine; Internal Medicine Nephrology
DX: N17.0 Acute kidney failure with tubular necrosis (principal); E11.65 Type 2 diabetes mellitus with hyperglycemia; Z68.44 Body mass index [BMI] 60.0-69.9, adult; I50.22 Chronic systolic (congestive) heart failure; I48.2 Chronic atrial fibrillation; I42.0 Dilated cardiomyopathy; E11.22 Type 2 diabetes mellitus with diabetic chronic kidney disease; I95.9 Hypotension, unspecified; E87.1 Hypo-osmolality and hyponatremia; E66.2 Morbid (severe) obesity with alveolar hypoventilation; I13.0 Hypertensive heart and chronic kidney disease with heart failure and stage 1 through stage 4 chronic kidney disease, or unspecified chronic kidney disease; Z79.4 Long term (current) use of insulin; E87.6 Hypokalemia; N18.3 Chronic kidney disease, stage 3 (moderate); J45.909 Unspecified asthma, uncomplicated; T38.3X6A Underdosing of insulin and oral hypoglycemic [antidiabetic] drugs, initial encounter; Z91.128 Patient's intentional underdosing of medication regimen for other reason; Y92.098 Other place in other non-institutional residence as the place of occurrence of the external cause; E86.0 Dehydration; E78.5 Hyperlipidemia, unspecified; Z79.01 Long term (current) use of anticoagulants
CPT/HCPCS: 36600; 71046; 80048; 80076; 81003; 82010; 82803; 82948; 83735; 83880; 84484; 85025; 93005; 99281; 99285; G0378; J1815; J7030; J7050; S0028